=== PATIENT | female | born 1980 | race Caucasian/White ===

== ENCOUNTER 2024-01-15 08:35 | Emergency (ER) | payer OTHER, SELFPAY ==
[2024-01-15 08:37] VITALS: BP 112/45; PULSE 85; RESP 17; TEMP 36.7; O2SAT 100; BMI 25.7
--- NOTE | 2024-01-15 08:59 | ED_ITS ---
HPI - General Adult General Chief complaint: General Medical Stated complaint: medication Time Seen by Provider: 01/15/24 08:59 Source: patient Mode of arrival: ambulatory Limitations: no limitations History of Present Illness HPI narrative: 43 Year old female with a past medical history polysubstance abuse presents to the emergency department for a dose of methadone. She reports [facility] [place], where she was receiving 125 mg of methadone, with last dose yesterday. She was to follow-up with in clinic here in [place] but when she presents to the clinic they recommended that she come to the emergency department as the [facility] did not provide paperwork verifying patient's last dose methadone. Patient reports she was a correctional facility for several months and that she is 28 weeks . She denies any abdominal pain, cramping, vaginal bleeding, fever, chills. She does endorse rhinorrhea and generalized body aches and believes her symptoms are due to withdrawal and declines workup regarding symptoms. Pertinent positives and negatives discussed in HPI Related Data Home Medications Medication Instructions Recorded Confirmed methadone 10 mg/mL oral 125 mg PO DAILY 01/15/24 01/15/24 concentrate (Methadone Intensol) Allergies Allergy/AdvReac Type Severity Reaction Status Date / Time acetaminophen [From VICODIN] Allergy Intermediate VOMITING Verified 01/15/24 11:39 amoxicillin [AMOXICILLIN] Allergy Intermediate VOMITING Verified 01/15/24 11:39 hydrocodone [From VICODIN] Allergy Intermediate VOMITING Verified 01/15/24 11:39 latex [LATEX] Allergy Intermediate RASH Verified 01/15/24 11:39 Review of Systems Review of Systems: Yes all other systems are reviewed and are negative [facility] Social History Social History Advance Directives: No Advance Directives Information Provided: No Physical Exam ED Vital Signs: Vital Signs - 24 hr 01/15/24 08:37 Temperature 98.0 F Pulse Rate 85 Respiratory Rate 17 Blood Pressure 112/45 L Pulse Oximetry 100 Oxygen Delivery Method Room Air BMI result Body Mass Index 25.7 Nursing notes and vital signs reviewed. GENERAL APPEARANCE: A&0 x 4, generally well appearing, no acute distress HENMT: Normal to inspection, atraumatic, face symmetrical. Normal external ears, nose, and oropharynx clear. EYE: PERRLA, EOM intact, structures appear normal NECK: Supple without stiffness or restricted ROM. HEART: Normal rate and regular rhythm, normal S1/S2, no M/R/G LUNGS: LS CTA, moving air well. Able to speak in complete sentences. No crackles, wheezes, or rhonchi auscultated BACK: No CVAT, no obvious deformity EXTREMITIES: Moving all extremities without difficulty. Normal capillary refill. NEUROLOGICAL: Alert and oriented, moving all 4 extremities with equal strength. CN not formally tested but appearing grossly intact. Observed to ambulate with normal gait. Cognition normal SKIN: Warm and dry without any lesions, rash, or visible sores Medications Administered Discontinued Medications Generic Name Dose Route Start Last Admin Trade Name Freq PRN Reason Stop Dose Admin Methadone HCl 125 mg 01/15/24 11:22 01/15/24 11:45 Methadone Hcl 20 Mg/2 Ml Oral.Conc PO 01/15/24 11:23 125 mg ONCE ONE Administration Medical Decision Making Medical Decision Making MDM Narrative: Old records reviewed for previous imaging, lab studies, ECGs, and notes. Patient was assessed the emergency department with no acute distress or toxicity noted. Pt declines work up for upper respiratory symptoms and generalized body aches. heart tones assessed and within normal limits at 136. Methadone dose verified, 125 mg, with [facility] and provided to patient. 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 Patient is safe for discharge at this time with plan for [id number] Tylenol for fever/discomfort with dosing as per packaging and hydrate to prevent dehydration. HPI, PE, diagnostics, and plan discussed with patient and family with no unanswered questions at this time. Strict return precautions given to return to the emergency department with new, worsening, or concerning emergent symptoms. Recommended to follow-up with there primary care provider in 24-48 hours for further treatment and management. Differential Diagnosis Differential Diagnoses: The differential diagnosis associated with the presentation includes but not limited to viral syndrome, drug withdrawal, pneumonia, sepsis, pneumonia, sinusitis, malignancy Discharge Plan Discharge Clinical Impression: Methadone maintenance therapy patient Patient Disposition: Home, Self-Care Instructions: Methadone (By mouth), at 27 to 30 Weeks (ED) Additional Instructions: Your were given 125 mg Methadone here in the [facility] Emergency Department, today 01/15/24. Your dose was verified by the [facility] You are safe for discharge at this time with plan for management of fever or discomfort with [id number] Tylenol with dosing as per packaging. Please return to the emergency department with new, worsening, or concerning emergent symptoms. Recommended to follow-up with your primary care provider in 24-48 hours for further treatment and management. Thank you for choosing [facility]. Prescriptions: No Action methadone [Methadone Intensol] 10 mg/mL Concentrate 125 mg PO DAILY Referrals: [facility] [Provider Group] ([address] [place] [id number] ) Print Language: Turkish
--- NOTE | 2024-01-15 11:25 | HE.PHANOTE ---
RE METHADONE Patient [facility]. Dose 125 mg, last dosed 01/14/24
[2024-01-15] MEDS: methADONE HCl 20 MG/2 ML ORAL.CONC 125 MG PO (11:45)
[2024-01-15 12:08] VITALS: BP 107/56; PULSE 93; RESP 16; TEMP 37.1; O2SAT 99
== END 2024-01-15 12:10 | disposition home or self-care (01) ==
PROVIDERS: Emergency Provider Student in an Organized Health Care Education/Training Program
DX: O99.323 Drug use complicating pregnancy, third trimester (principal); F11.20 Opioid dependence, uncomplicated; Z3A.28 28 weeks gestation of pregnancy
CPT/HCPCS: 99283

== ENCOUNTER 2024-01-16 08:38 | Emergency (ER) | payer OTHER, SELFPAY ==
[2024-01-16 08:42] VITALS: BP 93/47; PULSE 87; RESP 8; TEMP 36.5; O2SAT 99; BMI 25.1
--- NOTE | 2024-01-16 09:03 | ED_ITS ---
HPI - General Adult General Chief complaint: General Medical Stated complaint: Methadone dose Time Seen by Provider: 01/16/24 08:49 Source: patient, RN notes reviewed and old records reviewed Mode of arrival: ambulatory Limitations: no limitations History of Present Illness HPI narrative: 43-year-old female with history of opiate use disorder on methadone maintenance who presents to the ER for methadone dose. She was seen here yesterday after being sent here from [facility]. She states she was sent here from the clinic because she did not have a last dose letter. She recently got out of penitentiary. She states she has not used in last couple of months. She plans to go back to the clinic tomorrow after the holiday weekend. MD complaint: Methadone dosing Associated symptoms: denies other symptoms Treatments prior to arrival: none Related Data Home Medications Medication Instructions Recorded Confirmed methadone 10 mg/mL oral 125 mg PO DAILY 01/15/24 01/15/24 concentrate (Methadone Intensol) Allergies Allergy/AdvReac Type Severity Reaction Status Date / Time acetaminophen [From VICODIN] Allergy Intermediate VOMITING Verified 01/16/24 08:42 amoxicillin [AMOXICILLIN] Allergy Intermediate VOMITING Verified 01/16/24 08:42 hydrocodone [From VICODIN] Allergy Intermediate VOMITING Verified 01/16/24 08:42 latex [LATEX] Allergy Intermediate RASH Verified 01/16/24 08:42 Review of Systems Review of Systems: Yes all other systems are reviewed and are negative PMFSH Social History Social History Advance Directives: Yes Advance Directives Information Provided: Yes Advance Directives on File: No Physical Exam ED Vital Signs: Vital Signs - 24 hr 01/16/24 08:42 Temperature 97.7 F Pulse Rate 87 Respiratory Rate 8 L Blood Pressure 93/47 L Pulse Oximetry 99 Oxygen Delivery Method Room Air BMI result Body Mass Index 25.1 Appearance: Alert. Oriented X3. No acute distress. HEENT: normal inspection CVS: Normal heart rate and rhythm. Pulses normal. Respiratory: No respiratory distress. Skin: Skin warm and dry. Normal skin color. Normal skin turgor. No rashes. Extremities: Normal external inspection, no evidence of track wong. Neuro: Oriented X 3. No motor deficit. No sensory deficit. Medications Administered Discontinued Medications Generic Name Dose Route Start Last Admin Trade Name Freq PRN Reason Stop Dose Admin Methadone HCl 125 mg 01/16/24 08:55 01/16/24 09:06 Methadone Hcl 20 Mg/2 Ml Oral.Conc PO 01/16/24 08:56 125 mg ONCE ONE Administration Medical Decision Making Medical Decision Making MDM Narrative: 43-year-old female who is recently incarcerated, with a history of opioid use disorder on maintenance methadone 125 mg per day presents to the ER for methadone dosing today. Unable to go to the clinic due to holiday weekend. She has not been set up with the clinic since she got out of penitentiary. No recent drug use. She is awake and alert. Dosing confirmed from yesterday here. She is to get 125 mg here today and a last dose letter to presents to the clinic tomorrow. Stable for discharge home. Differential Diagnosis Differential Diagnoses: The differential diagnosis associated with the presentation includes Methadone maintenance, opioid use disorder, polysubstance abuse, medication noncompliance, active substance use External Record Review External record reviewed: Outpatient record Prescription Management I considered prescription management with: Other (Methadone) Chronic Conditions Patient?s care impacted by: Other (Opioid use disorder) Social Determinants Patient?s care significantly limited by Social Determinants of Health including: Other Social Determinant of Health Critical Care Time Critical Care Time Critical Care Time: No Discharge Plan Discharge Clinical Impression: Opioid use disorder Patient Disposition: Home, Self-Care Instructions: Opioid Use Disorder (ED) Additional Instructions: Your given 125 mg of methadone today. Follow-up with N for future dosing If you develop new or worsening symptoms call 911 or come back to the ER for further evaluation. Prescriptions: No Action methadone [Methadone Intensol] 10 mg/mL Concentrate 125 mg PO DAILY
[2024-01-16] MEDS: methADONE HCl 20 MG/2 ML ORAL.CONC 125 MG PO (09:06)
--- NOTE | 2024-01-16 09:15 | PC.NURSE ---
seen yesterday for methadone dose, 125 mg - confirmed. provided w/ same dose today and last dose letter. no other complaints, medicated per the MAR
== END 2024-01-16 09:16 | disposition home or self-care (01) ==
PROVIDERS: Emergency Provider Student in an Organized Health Care Education/Training Program
DX: F11.20 Opioid dependence, uncomplicated (principal)
CPT/HCPCS: 99281; 99283

== ENCOUNTER 2024-04-29 13:18 | Emergency (ER) | payer OTHER, SELFPAY ==
[2024-04-29 13:43] VITALS: BP 115/77; PULSE 78; RESP 18; TEMP 36.6; O2SAT 100; BMI 22.7
--- NOTE | 2024-04-29 13:44 | ED_ITS ---
HPI - General Adult General Chief complaint: General Medical Stated complaint: Needs Urine Drug Screen Time Seen by Provider: 04/29/24 13:45 Source: patient Mode of arrival: ambulatory Limitations: no limitations History of Present Illness HPI narrative: Patient is a 44-year-old female who presents to the emergency department requesting urine drug of abuse screen. Reports that she is currently residing at [facility], she had a urine drug screen days ago which reportedly resulted last night and was positive for substances. She believes it was positive for cocaine last. She states she has not used any recreational drugs she has been compliant with home methadone. Related Data Home Medications ?Medication ?Instructions ?Recorded ?Confirmed methadone 10 mg/mL oral 125 mg PO DAILY 01/15/24 01/15/24 concentrate (Methadone Intensol) Allergies Allergy/AdvReac Type Severity Reaction Status Date / Time acetaminophen [From VICODIN] Allergy Intermediate VOMITING Verified 04/29/24 13:45 amoxicillin [AMOXICILLIN] Allergy Intermediate VOMITING Verified 04/29/24 13:45 hydrocodone [From VICODIN] Allergy Intermediate VOMITING Verified 04/29/24 13:45 latex [LATEX] Allergy Intermediate RASH Verified 04/29/24 13:45 Review of Systems Review of Systems: Yes all other systems are reviewed and are negative PMFSH Past Medical History Attestation statement: The following information was validated with the patient. Source: old records reviewed Social History Social History Do you have a plan to hurt others: No Plan Physical Exam ED Vital Signs: Vital Signs - 24 hr 04/29/24 13:43 Temperature 97.9 F Pulse Rate 78 Respiratory Rate 18 Blood Pressure 115/77 Pulse Oximetry 100 Oxygen Delivery Method Room Air BMI result Body Mass Index 22.7 Appearance: Alert.?Oriented to person, place and time. No acute distress.?Normal affect. Neck: Normal inspection.? Neck supple.?? CVS: Heart sounds normal. Normal heart rate and rhythm.? Pulses normal.?? Respiratory: No respiratory distress.? Lung sounds clear to auscultation bilaterally?? Skin: Skin warm and dry.? Normal skin color.? ? Extremities: No lower extremity edema.? Neuro: Moves all extremities spontaneously. Sensation intact bilaterally. CN II- XII intact. No focal neuro deficits. Ambulates with normal steady gait. Medical Decision Making Medical Decision Making MDM Narrative: Patient is a 44-year-old female past medical history of substance use disorder presenting to emergency department requesting urine drug abuse screen as per HPI. Overall she appears well, nontoxic, afebrile. She reports no physical complaints. Her physical examination is benign. She denies any recreational drug usage, reporting her compliance with methadone. She is requesting for results of her urine drug screen to share with her sober living facility. Drug abuse screen today is positive for methadone only, these results were discussed with patient. Stable for discharge Differential Diagnosis Differential Diagnoses: The differential diagnosis associated with the presentation includes (See narrative above) Lab Data MDM Lab Attestation statement: I reviewed the patient's lab results. (See narrative above) Labs: Lab Results 04/29/24 Range/Units 13:56 Urine Opiates Screen Not Detected (Not Detect) Ur Buprenorphine Scrn Not Detected (Not Detect) ng/mL Ur Oxycodone Screen Not Detected (Not Detect) ng/mL Urine Methadone Screen Positive H (Not Detect) ng/mL Urine Fentanyl Screen Not Detected (Not Detect) Ur Barbiturates Screen Not Detected (Not Detect) Ur Phencyclidine Scrn Not Detected (Not Detect) Ur Amphetamines Screen Not Detected (Not Detect) U Benzodiazepines Scrn Not Detected (Not Detect) Urine Cocaine Screen Not Detected (Not Detect) U Marijuana (THC) Screen Not Detected (Not Detect) External Record Review External record reviewed: Outpatient record Social Determinants Patient?s care significantly limited by Social Determinants of Health including: Alcoholism and drug addiction in family Discharge Plan Discharge Clinical Impression: Methadone dependence Patient Disposition: Home, Self-Care Additional Instructions: Your urine drug of abuse screen today was positive for only methadone today, there were no other positive findings. Prescriptions: No Action methadone [Methadone Intensol] 10 mg/mL Concentrate 125 mg PO DAILY Referrals: Physician,Unknown J [Primary Care Provider] - Print Language: Italian
[2024-04-29 14:29] LABS: Amphetamine Screen Urine Not Detected (Not Detect); Barbiturates, Urine Not Detected (Not Detect); Benzodiazepines Screen Urine Not Detected (Not Detect); Buprenorphine Scr Not Detected (Not Detect); Cannabinoid Screen Urine Not Detected (Not Detect); Cocaine Screen Urine Not Detected (Not Detect); Fentanyl, urine Not Detected (Not Detect); Methadone Screen, Urine Positive (Not Detect); Opiate Screen Urine Not Detected (Not Detect); Oxycodone Screen Urine Not Detected (Not Detect); Phencyclidine Screen Urine Not Detected (Not Detect)
[2024-04-29 14:50] VITALS: BP 125/78; PULSE 72; RESP 18; TEMP 36.6; O2SAT 100
[2024-04-29 14:53] VITALS: BP 125/78; PULSE 72; RESP 18; TEMP 36.6; O2SAT 100
== END 2024-04-29 14:54 | disposition home or self-care (01) ==
LOC: HO.ED 14:53
PROVIDERS: Nurse Practitioner Family; Emergency Provider Emergency Medicine Emergency Medical Services
DX: Z02.83 Encounter for blood-alcohol and blood-drug test (principal); F11.20 Opioid dependence, uncomplicated
CPT/HCPCS: 80307; 99283